=== PATIENT | female | born 1940 | race Hispanic/Latino ===

== ENCOUNTER → 2020-09-28 | Outpatient (CLI) | payer MEDICARE | END | disposition home or self-care (01) | LOC: RAH 08:59 | PROVIDERS: ATTEND Physical Medicine & Rehabilitation | DX: M47.27 Other spondylosis with radiculopathy, lumbosacral region (principal); M51.16 Intervertebral disc disorders with radiculopathy, lumbar region; M48.061 Spinal stenosis, lumbar region without neurogenic claudication; M89.48 Other hypertrophic osteoarthropathy, other site | CPT/HCPCS: 72114; 72148 ==

== ENCOUNTER 2020-10-21 12:00 | Observation (INO) | payer MEDICARE ==
[~2020-10-21] VITALS: Ht 167.6 cm; Wt 84.5 kg
[2020-10-21 13:11] LABS: BASOPHILS % (AUTO) 0.9 % (0.0-5.0); HEMATOCRIT 43.1 % (36-48); LYMPHOCYTES % (AUTO) 32.9 % (21.0-51.0); MEAN CORPUSCULAR HEMOGLOBIN 33.1 pg (27.0-33.0); MEAN CORPUSCULAR HGB CONC 32.7 g/dL (32.0-36.0); MEAN CORPUSCULAR VOLUME 101.2 fL (79-99); MONOCYTES % (AUTO) 12.7 % (3.0-13.0); NEUTROPHILS % (AUTO) 49.6 % (40.0-77.0); PLATELET COUNT (AUTO) 200 K/uL (130-400); RED BLOOD CELL COUNT(AUTO) 4.26 MIL/uL (4.00-5.50); RED CELL DISTRIBUTION WIDTH 11.9 % (11.0-15.5); WHITE BLOOD COUNT (AUTO) 7.4 K/uL (4.8-10.8)
[2020-10-21 13:30] LABS: CREATININE 0.7 mg/dL (0.5-1.5); POTASSIUM 4.5 mmol/L (3.5-5.1)
[2020-10-25 09:24] VITALS: BP 142/77
[2020-10-25] MEDS ORDERED: MELO-106 PO (10:02)
[2020-10-25] MEDS ORDERED: PANTOPRAZOLE PO (10:02)
[2020-10-25] MEDS ORDERED: ASPI-1443 PO (10:02)
[2020-10-25] MEDS ORDERED: ATOR40TA71 PO (10:02)
[2020-10-26] VITALS (27 sets, daily range): BP systolic 103–154; BP diastolic 49–79
[2020-10-26] MEDS ORDERED: LACTATED RINGERS 1000ML 1,000 ML IV ONE (05:58)
[2020-10-26] MEDS ORDERED: CEFAZOLIN SODIUM 1 GM VIAL ONE ×2 (06:03→06:39)
[2020-10-26] MEDS ORDERED: MORPHINE PF 100MG/10ML AMP IV ONE (06:40)
[2020-10-26] MEDS ORDERED: BUPIVACAINE/EPI/PF 0.25% 30ML VIAL IJ ONE (06:40)
[2020-10-26] MEDS ORDERED: THROMBIN-JMI 20000 UNIT KIT TP ONE (06:41)
[2020-10-26] MEDS ORDERED: SUCCINYLCHOLINE CHLORIDE 20 MG/ML 10 ML VIAL ONE (06:51)
[2020-10-26] MEDS ORDERED: LIDOCAINE PF 100MG/5ML (2%) SYRINGE 5ML ONE (06:51)
[2020-10-26] MEDS ORDERED: NEOSTIGMINE 5MG/5ML SYR IV ONE (06:52)
[2020-10-26] MEDS ORDERED: MIDAZOLAM HCL 1 MG/ML 2ML VIAL ONE (06:52)
[2020-10-26] MEDS ORDERED: GLYCOPYRROLATE 1 MG/5 ML SYRINGE ONE (06:52)
[2020-10-26] MEDS ORDERED: PROPOFOL 10 MG/ML 20ML VIAL IV ONE (06:52)
[2020-10-26] MEDS ORDERED: ROCURONIUM 10MG/1ML SYR 10 MG/ML ML ONE (06:52)
[2020-10-26] MEDS ORDERED: DEXAMETHASONE SOD PHOSPHATE 10MG/ML 1ML VIAL ONE ×2 (06:52→06:55)
[2020-10-26] MEDS ORDERED: ONDANSETRON 4MG INJ ONE (06:52)
[2020-10-26] MEDS ORDERED: FENTANYL CITRATE PF 50 MCG/1 ML 2ML VIAL ONE (06:53)
[2020-10-26] MEDS ORDERED: PHENYLEPHRINE HCL 10 MG/ML 1ML VIAL IV ONE (08:55)
[2020-10-26] MEDS: [UNRECOGNIZED DRUG - OTHER] PO SCH (09:00)
[2020-10-26] MEDS ORDERED: 0.9%NACL 10ML VIAL IVP PRN (10:15)
[2020-10-26] MEDS: DEXAMETHASONE SOD PHOSPHATE 4 MG/ML 1ML VIAL IVP SCH ×3 (10:15→21:47)
[2020-10-26] MEDS ORDERED: PROMETHAZINE HCL 25 MG/ML 1ML AMPULE IM PRN (10:15)
[2020-10-26] MEDS ORDERED: MORPHINE 2 MG SYG IVP PRN (10:15)
[2020-10-26] MEDS: CEFAZOLIN SODIUM 1 GM VIAL IVP SCH ×2 (10:15→16:42)
[2020-10-26] MEDS ORDERED: MEPERIDINE-PF 25 MG/ML SYG ONE (10:38)
[2020-10-26] MEDS: LACTATED RINGERS 1000ML 1,000 ML IV SCH ×2 (11:40→22:19)
[2020-10-26] MEDS: HYDROCODONE/ACETAMINOPHEN 5/325 MG TAB PO PRN ×2 (12:26→21:48)
[2020-10-26] MEDS ORDERED: ATORVASTATIN 40 MG TABLET PO SCH (21:00)
[2020-10-27] MEDS: CEFAZOLIN SODIUM 1 GM VIAL IVP SCH (02:18)
[2020-10-27 03:38] VITALS: BP 125/56
[2020-10-27] MEDS: DEXAMETHASONE SOD PHOSPHATE 4 MG/ML 1ML VIAL IVP SCH (04:27)
[2020-10-27] MEDS: LACTATED RINGERS 1000ML 1,000 ML IV SCH ×2 (05:09→10:11)
[2020-10-27] MEDS: HYDROCODONE/ACETAMINOPHEN 5/325 MG TAB PO PRN ×2 (05:10→10:06)
[2020-10-27] MEDS: [UNRECOGNIZED DRUG - OTHER] PO SCH (07:15)
[2020-10-27 08:00] VITALS: BP 129/61
[2020-10-27] MEDS ORDERED: MELOXICAM 7.5 MG TABLET PO SCH (09:00)
[2020-10-27] MEDS ORDERED: ASPIRIN 81 MG EC TAB PO SCH (09:00)
[2020-10-28] MEDS ORDERED: CEFAZOLIN SODIUM 1 GM VIAL IVP SCH (06:00)
== END 2020-10-27 11:02 | disposition home or self-care (01) ==
LOC: EDSTATUS 12:00 → DAHIP 10-26 05:51 → 4AH 10-26 10:50
PROVIDERS: ADMIT Neurological Surgery; ATTEND Neurological Surgery
DX: M48.061 Spinal stenosis, lumbar region without neurogenic claudication (principal); E78.00 Pure hypercholesterolemia, unspecified; K21.9 Gastro-esophageal reflux disease without esophagitis; Z20.822 Contact with and (suspected) exposure to COVID-19
CPT/HCPCS: 36415; 63047; 63048; 72020; 80048; 85025; 87635; 96374; 96375; 96376 ×2; A4215; A4221; A4222; A4223; A4344; A4649 ×3; A6260; G0378 ×25; J0330; J0690 ×5; J1100 ×5; J2001; J2175; J2250; J2274; J2370; J2405; J2704; J2710; J3010; J3490 ×2; J7120 ×4